=== PATIENT | male | born 2000 | race African-American/Black ===

== ENCOUNTER 2020-01-28 21:02 | Emergency (ER) | payer SELFPAY ==
[~2020-01-28] VITALS: Ht 167.7 cm; Wt 72.7 kg
--- NOTE | 2020-01-28 21:17 | ED Psychosocial ---
General Stated Complaint: PANIC ATTACK Source: patient Exam Limitations: no limitations History of Present Illness Date Seen by Provider: Jan 28, 2020 Time Seen by Provider: 21:13 Initial Comments 19-year-old male presents following an anxiety attack. Patient a college student here from [facility]. Patient was visiting with friends about coronavirus and influenza. He had very anxious and nervous. Patient was to be tested for coronavirus. However he does not have a cough fever or any known exposure to meet testing guidelines. Patient symptoms have resolved upon arrival to the ER. patient is set to go back to [place] tomorrow for break. He denies any anxiousness over the trip or being around family Timing/Duration: just prior to arrival Associated Symptoms: anxiety Allergies and Home Medications Patient Home Medication List Home Medication List Reviewed: Yes Review of Systems Constitutional: no symptoms reported EENTM: no symptoms reported Respiratory: no symptoms reported Cardiovascular: no symptoms reported Gastrointestinal: no symptoms reported Genitourinary: no symptoms reported Psychiatric/Neurological: See HPI, Anxiety Past Cgpcaxm-Gmcwad-Axzvhc Hx Past Med/Social Hx: Reviewed Nursing Past Med/Soc Hx Physical Exam Capillary Refill : Height, Weight, BMI Height: '" Weight: lbs. oz. 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 Patient Instructions: Stress, Anxiety, Adult (DC) ARVIND DEMPSEY DO Jan 28, 2020 21:17
[2020-01-28] MEDS ORDERED: ONDANSETRON 4 MG (ZOFRAN) ORAL DISSOLVE TAB SL STA (21:36)
[2020-01-28 22:09] VITALS: BP 101/82
== END 2020-01-28 22:09 | disposition home or self-care (01) ==
LOC: ER FS 21:04
DX: F41.9 Anxiety disorder, unspecified (principal)
CPT/HCPCS: 99283